=== PATIENT | male | born 1975 ===

== ENCOUNTER 2022-06-11 09:44 | Emergency (ER) | payer MEDICAID, OTHER ==
[~2022-06-11] VITALS: Ht 175.3 cm; Wt 78.0 kg
[2022-06-11 10:55] VITALS: BP 138/106
[2022-06-11] MEDS ORDERED: IBUP800T27 PO (11:57)
[2022-06-11] MEDS ORDERED: METH750T22 PO (11:57)
== END 2022-06-11 12:03 | disposition home or self-care (01) ==
LOC: ER 10:02
DX: S46.911A Strain of unspecified muscle, fascia and tendon at shoulder and upper arm level, right arm, initial encounter (principal); X58.XXXA Exposure to other specified factors, initial encounter; Y93.89 Activity, other specified; Y92.89 Other specified places as the place of occurrence of the external cause; Y99.8 Other external cause status
CPT/HCPCS: 73030; 93005